=== PATIENT | female | born 1965 | race Caucasian/White ===

== ENCOUNTER 2021-01-29 19:41 | Emergency (ER) | payer MEDICARE ==
[~2021-01-29 19:41] MED LIST: LISINOPRIL-HCT1 EACH PO; PAXIL20 MG PO; PRILOSEC20 MG PO; SYNTHROID50 MCG PO
[2021-01-30 03:28] LABS: BASOPHIL 0.2 % (0-2); EOSINOPHIL 0 % (0-5); HCT 39.9 % (37.0-47.0); HGB 13.2 g/dl (12.5-16.0); MCH 28.9 pg (25.0-31.0); MCHC 33.1 g/dL (32.0-36.0); MCV 87.3 fL (78.0-100.0); MONOCYTE 6.6 % (0-12); MPV 9.2 fL (6.0-9.5); NEUTROPHIL 59.8 % (41-80); NRBC 0; PLT 200 K/uL (150-400); RBC 4.57 M/uL (4.20-5.40); RDW 13.9 % (11.5-14.0); WBC 4.5 K/uL (4.0-10.5)
[2021-01-30 03:47] LABS: ALBUMIN 3.2 g/dL (3.4-5.0); BILIRUBIN - TOTAL 0.5 mg/dL (0.2-1.0); CREATININE 0.6 mg/dL (0.51-0.95); GLOBULIN (CALCULATION) 3.8 g/dL; POTASSIUM 3.5 mmol/L (3.5-5.1)
[2021-01-30] MEDS ORDERED: MEDROL 4MG DOSEP4 MG PO ×2 (05:32→05:33)
[2021-01-30] MEDS ORDERED: TESSALON PERLE100 M1 PO ×2 (05:32→05:33)
[2021-01-30] MEDS ORDERED: NAPROXEN500 MG PO ×2 (05:32→05:33)
[2021-01-30] MEDS ORDERED: VENTOLIN HFA18 GM INH (05:33)
== END 2021-01-30 05:55 | disposition home or self-care (01) ==
LOC: FER 19:41
PROVIDERS: Emergency Medicine
DX: U07.1 COVID-19 (principal); I10 Essential (primary) hypertension; F17.290 Nicotine dependence, other tobacco product, uncomplicated
CPT/HCPCS: 36415; 80053; 84145; 85025; J7030; M0243; Q0244; U0002